=== PATIENT | female | born 1955 | race Caucasian/White ===

== ENCOUNTER 2022-05-20 07:33 | Outpatient (CLI) | payer MEDICARE, BC, SELFPAY ==
[2022-05-20 10:12] LABS: Chloride* 100 mmol/L (96-114); Potassium* 3.7 mmol/L (3.6-5.1); Sodium* 139 mmol/L (135-149)
[2022-05-20 10:15] LABS: Blood Urea Nitrogen* 28 mg/dL (7-30); Carbon Dioxide* 33 mmol/L (20-32); Cholesterol* 181 mg/dL (90-199); Creatinine* 1.1 mg/dL (0.5-1.5); Estimated Glomerular Filt Rate 55 ml/min; Glucose* 101 mg/dL (60-115)
[2022-05-20 10:16] LABS: Calcium* 9.7 mg/dL (8.4-10.6); HDL Cholesterol* 53 mg/dL (>=50); LDL Cholesterol Calculated 102 mg/dL (<100); Triglycerides* 130 mg/dL (40-149)
== END 2022-05-20 07:34 | disposition home or self-care (01) ==
PROVIDERS: PCP Internal Medicine; Visit Provider Internal Medicine
DX: E78.5 Hyperlipidemia, unspecified (principal)
CPT/HCPCS: 80048; 80061

== ENCOUNTER 2022-12-30 07:26 | Outpatient (CLI) | payer MEDICARE, BC, SELFPAY | END 2022-12-30 07:27 | disposition home or self-care (01) | LOC: NFLDREF 12-31 09:57 | PROVIDERS: PCP Internal Medicine; Visit Provider Internal Medicine | DX: I10 Essential (primary) hypertension (principal); E78.5 Hyperlipidemia, unspecified | CPT/HCPCS: 80048; 80061 ==

== ENCOUNTER 2023-01-09 07:58 | Outpatient (CLI) | payer MEDICARE, BC, SELFPAY ==
--- NOTE | 2023-01-09 08:15 | CRLHL7_ITS ---
For Patients: As a result of the Century Cures Act, medical imaging exams and procedure reports are released immediately into your electronic medical record. You may view this report before your referring provider. If you have questions, please contact your health care provider. BILATERAL SCREENING MAMMOGRAM WITH COMPUTER-AIDED DETECTION AND TOMOSYNTHESIS TECHNIQUE: CC and MLO views were obtained. These mammographic images have been obtained using full-field digital technique. These mammographic images were interpreted with the benefit of computer-aided detection. Breast Tomosynthesis was used in this interpretation. COMPARISON FILM: None available. FINDINGS: The breasts are heterogeneously dense, which may obscure small masses IMPRESSION: There is no radiographic evidence for malignancy. ASSESSMENT: BI-RADS Category 2: Benign RECOMMENDATION: Routine screening mammogram in 1 year. A lay language report of this examination will be provided to the patient. Stevenson Modi M.D. Diagnostic Radiologist [email or web address] LUDWIN/Dictated by: Stevenson Modi MD @ 01/24/2023 9:41:00 AM (Electronically Signed)
== END 2023-01-09 07:59 | disposition home or self-care (01) ==
LOC: MAMMO 07:59
PROVIDERS: PCP Internal Medicine; Visit Provider Internal Medicine
DX: Z12.31 Encounter for screening mammogram for malignant neoplasm of breast (principal); R92.2 Inconclusive mammogram
CPT/HCPCS: 77063; 77067

== ENCOUNTER 2024-01-07 08:08 | Outpatient (CLI) | payer MEDICARE, BC, SELFPAY | END 2024-01-07 08:09 | disposition home or self-care (01) | LOC: NFLDREF 01-09 08:40 | PROVIDERS: PCP Internal Medicine; Referring Provider Internal Medicine; Visit Provider Internal Medicine | DX: E78.5 Hyperlipidemia, unspecified (principal); I10 Essential (primary) hypertension | CPT/HCPCS: 80048; 80061 ==

== ENCOUNTER 2024-01-12 15:16 | Outpatient (CLI) | payer MEDICARE, BC, SELFPAY ==
--- NOTE | 2024-01-12 15:20 | MM_ITS ---
Patient: SANTA VASQUEZ Facility:?[facility] Patient ID:?[id number] Site Patient ID:?[id number]. Site :?[id number] Study:?XRay-Breast Bilateral 3D W/CAD-01/12/2024 3:45:31 PM Ordering Physician:Christina Dominique Final Report: BILATERAL SCREENING MAMMOGRAM WITH COMPUTER-AIDED DETECTION AND TOMOSYNTHESIS TECHNIQUE: CC and MLO views were obtained. These mammographic images have been obtained using full-field digital technique. These mammographic images were interpreted with the benefit of computer-aided detection. Breast tomosynthesis was used in this interpretation. COMPARISON FILM: 01/09/23, 11/10/20, 11/09/19. FINDINGS: The breasts are heterogeneously dense, which may obscure small masses. IMPRESSION: There is no radiographic evidence for malignancy. ASSESSMENT: BI-RADS Category 2: Benign RECOMMENDATION: Routine screening mammogram in 1 year. A lay language report of this examination will be provided to the patient. ASHLEIGH GOLD M.D. Diagnostic Radiologist [email or web address] SAEED/darlene D& Transcribed: 6:[address]/Dictated by: Ashleigh Gold MD @ 01/22/2024 12:02:00 PM Signed by:?Ashleigh Gold MD @01/22/2024 8:24:26 PM (Electronic Signature)
== END 2024-01-12 15:17 | disposition home or self-care (01) ==
PROVIDERS: PCP Internal Medicine; Visit Provider Internal Medicine
DX: Z12.31 Encounter for screening mammogram for malignant neoplasm of breast (principal); R92.2 Inconclusive mammogram
CPT/HCPCS: 77063; 77067

== ENCOUNTER 2024-04-07 10:19 | Outpatient (RCR) | payer MEDICARE, BC, SELFPAY | END 2024-10-04 23:59 | disposition home or self-care (01) | LOC: CCIC 10:19 | PROVIDERS: PCP Internal Medicine; Visit Provider Internal Medicine Hematology & Oncology | DX: N60.91 Unspecified benign mammary dysplasia of right breast (principal); Z85.3 Personal history of malignant neoplasm of breast | CPT/HCPCS: 99202; 99204; 99205 ==

== ENCOUNTER 2025-01-10 07:45 | Outpatient (CLI) | payer MEDICARE, SELFPAY | END 2025-01-10 07:46 | disposition home or self-care (01) | LOC: NFLDREF 01-11 05:44 | PROVIDERS: PCP Internal Medicine; Referring Provider Internal Medicine; Visit Provider Internal Medicine | DX: E78.5 Hyperlipidemia, unspecified (principal); I10 Essential (primary) hypertension | CPT/HCPCS: 80048; 80061 ==

== ENCOUNTER 2025-01-12 09:05 | Outpatient (CLI) | payer MEDICARE, SELFPAY ==
--- NOTE | 2025-01-12 09:15 | CRLHL7_ITS ---
For Patients: As a result of the Century Cures Act, medical imaging exams and procedure reports are released immediately into your electronic medical record. You may view this report before your referring provider. If you have questions, please contact your health care provider. BILATERAL SCREENING MAMMOGRAM WITH COMPUTER-AIDED DETECTION AND TOMOSYNTHESIS TECHNIQUE: CC and MLO views were obtained. These mammographic images have been obtained using full-field digital technique. These mammographic images were interpreted with the benefit of computer-aided detection. Breast Tomosynthesis was used in this interpretation. COMPARISON FILM: 01/12/24, 01/09/23, 11/20/20. FINDINGS: The breasts are heterogeneously dense, which may obscure small masses. IMPRESSION: There is no radiographic evidence for malignancy. ASSESSMENT: BI-RADS Category 2: Benign RECOMMENDATION: Routine screening mammogram in 1 year. A lay language report of this examination will be provided to the patient. Stevenson Modi M.D. Diagnostic Radiologist [email or web address] SP/Dictated by: Stevenson Modi MD @ 01/18/2025 11:26:00 AM (Electronically Signed)
== END 2025-01-12 09:06 | disposition home or self-care (01) ==
LOC: MAMMO 09:05
PROVIDERS: PCP Internal Medicine; Visit Provider Internal Medicine
DX: Z12.31 Encounter for screening mammogram for malignant neoplasm of breast (principal); R92.333 Mammographic heterogeneous density, bilateral breasts
CPT/HCPCS: 77063; 77067

== ENCOUNTER 2025-01-20 09:29 | Outpatient (CLI) | payer MEDICARE, SELFPAY | END 2025-01-20 09:30 | disposition home or self-care (01) | LOC: NFLDREF 09:29 | PROVIDERS: PCP Internal Medicine; Visit Provider Internal Medicine | DX: R55 Syncope and collapse (principal) | CPT/HCPCS: 82728 ==

== ENCOUNTER 2025-05-16 08:30 | Outpatient (RCR) | payer MEDICARE, SELFPAY | END 2025-06-17 17:00 | disposition home or self-care (01) | PROVIDERS: PCP Internal Medicine; Visit Provider Internal Medicine | DX: M21.70 Unequal limb length (acquired), unspecified site (principal); M54.50 Low back pain, unspecified; Z51.89 Encounter for other specified aftercare | CPT/HCPCS: 97110; 97140; 97161 ==

== ENCOUNTER 2025-07-11 08:57 | Outpatient (CLI) | payer MEDICARE, SELFPAY ==
--- NOTE | 2025-07-11 09:15 | CRLHL7_ITS ---
For Patients: As a result of the Century Cures Act, medical imaging exams and procedure reports are released immediately into your electronic medical record. You may view this report before your referring provider. If you have questions, please contact your health care provider. 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 No current breast related concerns. INDICATION FOR BREAST MRI: High-risk screening breast MRI. COMPARISON STUDIES: Mammograms 01/12/2025 and 01/09/2023. No prior breast MRIs are available. CONTRAST: 17 mL IV Dotarem. TECHNIQUE: The patient was positioned prone using a breast coil. Multiple imaging sequences were obtained using 1-1.5 mm thick slices with no gap. The image sequences include T2-weighted STIR in the axial plane, T1-weighted nonfat-saturated gradient echo in the axial plane, pre- and post-contrast T1-weighted FLASH 3D with fat suppression in the axial plane, and T1-weighted FLASH high resolution 3D with fat suppression in the sagittal plane. Image post-processing was performed on a [employer] workstation. Complex 3D rendering including maximum intensity projections (MIPS) and volumetric renderings were obtained to optimize visualization of the extent of pathology and relationship to the nipple, skin, and chest wall. This aids in determining feasibility of breast conservation surgery. Subtraction, multiplanar reconstruction, mean curve determination, and angiogenesis mapping were also performed. The study was technically adequate. FINDINGS: Amount of Fibroglandular Tissue: Heterogeneous fibroglandular tissue. Breast Background Enhancement: Minimal. RIGHT Breast: There are postsurgical changes in the upper central breast. No suspicious mass or non-mass enhancement. LEFT Breast: There are postsurgical changes in the outer central breast. No suspicious mass or non-mass enhancement. Lymph Nodes: No abnormal morphology lymph nodes. IMPRESSIONS AND RECOMMENDATIONS: 1. No MRI evidence of malignancy in either breast. 2. Annual screening mammography is recommended. If clinically indicated, continued screening breast MRI may also be performed, staggered at six-month intervals with screening mammography. BI-RADS Category 2: Benign Dictated by Marisela Power MD @ 07/12/2025 9:47:41 AM jj/Dictated by: Marisela Power MD @ 07/12/2025 9:51:00 AM (Electronically Signed)
== END 2025-07-11 08:58 | disposition home or self-care (01) ==
LOC: MRI 08:58
PROVIDERS: PCP Internal Medicine; Visit Provider Surgery
DX: Z12.39 Encounter for other screening for malignant neoplasm of breast (principal); N60.99 Unspecified benign mammary dysplasia of unspecified breast; Z91.89 Other specified personal risk factors, not elsewhere classified
CPT/HCPCS: 77049; C8908; C8937; A9575